=== PATIENT | male | born 1995 | race Caucasian/White ===

== ENCOUNTER 2021-09-03 13:15 | Emergency (ER) | payer SELFPAY ==
[2021-09-03 13:21] VITALS: BP 128/78; PULSE 83; RESP 16; TEMP 36.9; O2SAT 98; BMI 34.2
[2021-09-03 15:03] LABS: Basophils % 0.2 %; Eosinophils % 0.1 %; Hematocrit 43.7 % (42.0-52.0); Hemoglobin 15.2 g/dL (11.7-16.6); Lymphocytes # 1.2 10^3/uL (0.8-4.8); Lymphocytes % 6.8 %; Mean Corpuscular HGB Conc 34.8 g/dL (30.0-36.0); Mean Corpuscular Hemoglobin 30.2 pg (28.0-34.0); Mean Corpuscular Volume 86.9 fl (80-94); Mean Platelet Volume 9.2 fL (7.4-10.4); Monocytes # 0.9 10^3/uL (0.2-0.9); Monocytes % 5.4 %; Neutrophils # 14.81 10^3/uL (1.8-7.7); Neutrophils % 87.3 %; Nucleated Red Blood Cells % 0 %; Platelet Count 338 10^3/cmm (130-400); Red Blood Count 5.03 10^6/uL (4.1-5.3); Red Cell Distribution Width 11.4 % (12.1-15.1)
--- NOTE | 2021-09-03 15:05 | CT_ITS ---
WS: [id number] CT ABDOMEN AND PELVIS WITH CONTRAST HISTORY: Abdominal pain and blood in stool. TECHNIQUE: Imaging performed of the abdomen and pelvis with IV contrast. Single phase imaging of the abdomen. Coronal and sagittal reformats are submitted. All CT scans at [facility] use at [address] one of these dose optimization techniques: automated exposure control; mA and/or kV adjustment per patient size (includes targeted exams where dose is matched to clinical indication); or iterative re construction. IV CONTRAST: Omnipaque 300; 95 mL IV. Oral contrast: No DLP: 1928.3 mGy.cm COMPARISON: None available. Lower thorax: Lung bases are clear. Heart is normal size. No hiatal hernia. Liver/biliary system: Normal size with no intrahepatic dilatation. Gallbladder: Normal. No gallstones or wall thickening. No pericholecystic fluid. Pancreas: Normal size pancreas and pancreatic duct. No adjacent inflammation. Spleen: Normal size spleen. No mass or infarct. Adrenal glands: Normal. Right kidney: Normal. Left kidney: Normal. Aorta: Normal. Lymphadenopathy: Numerous hyperemic lymph nodes are noted within the mesentery. The largest lymph nod es measure up to 9 mm in the RIGHT lower quadrant. Small precaval lymph node. Free fluid: None. GI tract: The appendix is normal. Normal appearance of the stomach. No small bowel obstruction. No ev idence for enteritis. Within portions of the colon there is diffuse wall thickening and nodularity wi th ill-defined mucosa. The findings are most significant in the descending and sigmoid colon to the r ectum. There is not a lot of edema or pericolonic inflammation. There is high density material within the distal colon which may be medicinal. Abdominal wall: Unremarkable abdominal wall. No hernia. Pelvis: No free fluid or adenopathy. Nondistended urinary bladder. Bones: Unremarkable. CT/CT abdomen pelvis w con* [id number] IMPRESSION: 1. Moderate mucosal thickening and nodularity, predominantly within the descen ding and sigmoid colon to the rectum. Findings are most consistent with colitis /ulcerative colitis. 2. The appendix is normal. 3. No free air. 4. Reactive mesenteric and RIGHT lower quadrant lymph nodes.
--- NOTE | 2021-09-03 15:05 | W.ED.GIBLEED ---
HPI - GI Bleed General: Chief complaint: GI Bleed Stated complaint: Passing alot of blood w/ Diarrhea Time Seen by Provider: 09/03/21 14:46 History of Present Illness: HPI Narrative: 25 yo male present to the eR with omplaints of bright red blood per rectum. Patient has had 2 blood-streaked stools in the last 24 hours. No history of ulcerative colitis or Crohn's. Some mild epigastric discomfort has not had any vomiting but has been nauseous. MD complaint: blood streaked stool Onset (ago): day(s) Pain Consistency: constant Severity: mild Relieving factors: none Exacerbating factors: none Associated symptoms: Reports abdominal pain, nausea and poor appetite; Denies chills, easy bruising, epistaxis, fever(s), headache(s), malaise, other bleeding, rash, syncope, vomiting or weakness Review of Systems Const: Denies: fever(s), chills or malaise ENMT: Denies: epistaxis Card: Denies: syncope Resp: Denies: dyspnea, productive cough or non-productive cough GI: Reports: abdominal pain and nausea; Denies: vomiting : Denies: flank pain, dysuria, urinary frequency or urinary urgency Skin/Breast: Denies: rash Neuro: Denies: headache(s) Randell/Lymph: Denies: easy bruising PFS ED PFSH: Medical History (Updated 09/03/21 @ 16:11 by Louie Anand DO) No pertinent past medical history Surgical History (Updated 09/03/21 @ 15:09 by Louie Anand DO) No pertinent past surgical history Physical Exam Const: COMMON NORMALS: no acute distress GENERAL APPEARANCE: cooperative and comfortable ORIENTATION/CONSCIOUSNESS: Yes awake, Yes oriented to person, Yes oriented to place and Yes oriented to time HENMT: COMMON NORMALS: normocephalic, atraumatic and hearing grossly normal bilaterally HEAD & SCALP: normocephalic and atraumatic Neck/C-Spine: COMMON NORMALS: no JVD Resp: COMMON NORMALS: normal respiratory effort, No retractions, No use of accessory muscles and clear to auscultation bilaterally AUSCULTATION: clear to auscultation bilaterally Cardio: COMMON NORMALS: no JVD, regular rate, regular rhythm and No murmurs present (Cardio) RATE: regular rate RHYTHM: regular rhythm GI: COMMON NORMALS: Soft to palpation and No hepatosplenomegaly present AUSCULTATION: Yes normoactive bowel sounds PALPATION: Yes Soft to palpation, No Tenderness to palpation present (GI), No Guarding due to palpation present (GI) and Yes No hepatosplenomegaly present RECTAL EXAM: Yes hemorrhoids (Some fresh bright red blood around the rectum.) Extremity: COMMON NORMALS: normal to inspection, capillary refill normal, no clubbing, cyanosis or edema, no calf tenderness and no pedal edema Neuro: SENSORIUM/ORIENTATION: Yes oriented to person, Yes oriented to place and Yes oriented to time Skin: COMMON NORMALS: no rashes or lesions noted GENERAL SKIN EXAM: no rashes or lesions noted Course Vital Signs: Vital signs: Vital Signs Temperature 98.4 F 09/03/21 13:21 Pulse Rate 84 09/03/21 16:31 Respiratory Rate 18 09/03/21 16:31 Blood Pressure 137/74 09/03/21 16:31 Pulse Oximetry 97 09/03/21 16:31 MDM - GI Bleed MDM Narrative: Medical decision making narrative: Labs and imaging reviewed as found on the chart. Patient appears to have a hemorrhoid in addition that he does have some colitis. We will treat the colitis with Cipro and Flagyl Zofran clear liquid diet and advance as tolerated. For the hemorrhoid use [id number] Preparation H every 4 hours. Follow-up with his primary care doctor you will need a colonoscopy sometime in the next month or 2 if he has any worsening or change symptoms or increasing rectal bleeding return to the emergency room. Lab Data: Labs: Lab Results 09/03/21 09/03/21 14:54 14:54 WBC 17.0 10^3/uL H 10 ^3/uL (4.0-10.0) RBC 5.03 10^6/uL 10^6 /uL (4.1-5.3) Hgb 15.2 g/dL g/dL (11.7-16.6) Hct 43.7 % % (42.0-52.0) MCV 86.9 fl fl (80-94) MCH 30.2 pg pg (28.0-34.0) MCHC 34.8 g/dL g/dL (30.0-36.0) RDW 11.4 % L % (12.1-15.1) Plt Count 338 10^3/cmm 10^3 /cmm (130-400) MPV 9.2 fL fL (7.4-10.4) Neut % (Auto) 87.3 % % Lymph % (Auto) 6.8 % % Maries % (Auto) 5.4 % % Eos % (Auto) 0.1 % % Baso % (Auto) 0.2 % % Neut # (Auto) 14.81 10^3/uL H 1 0^3/uL (1.8-7.7) Lymph # (Auto) 1.2 10^3/uL 10^3/ uL (0.8-4.8) Maries # (Auto) 0.9 10^3/uL 10^3/ uL (0.2-0.9) Eos # (Auto) 0.0 10^3/uL 10^3/ uL (0.0-0.8) Baso # (Auto) 0.0 10^3/uL 10^3/ uL (0.0-0.1) Nucleated RBC % (a uto) 0 % % Nucleated RBCs # 0.0 /100WBC /100W BC Sodium 138 mmol/L mmol/L (136-145) Potassium 3.7 mmol/L mmol/L (3.5-5.1) Chloride 101 mmol/L mmol/L (98-107) Carbon Dioxide 24 mmol/L mmol/L (22-29) Anion Gap 16.7 (5-19) BUN 12 mg/dL mg/dL (6-20) Creatinine 0.8 mg/dL mg/dL (0.7-1.2) GFR Calculation 119.8 mL/min mL/m in (90-130) Glucose 85 mg/dL mg/dL (65-115) Calculated Osmolal ity 285 mOsm/kg mOsm/ kg (285-295) Calcium 8.7 mg/dL mg/dL (8.5-10.5) Total Bilirubin 0.5 mg/dL mg/dL (0.15-1.2) AST 22 U/L U/L (0-40) ALT 22 U/L U/L (0-41) Alkaline Phosphata se 80 IU/L IU/L (40-130) Total Protein 7.0 g/dL g/dL (6.6-8.7) Albumin 4.8 g/dL g/dL (3.5-5.2) Globulin 2.2 g/dL g/dL (1.3-4.6) Discharge Plan Discharge Patient Disposition: Home Clinical Impression: Colitis, Bleeding hemorrhoids Condition: Stable Prescriptions: New Cipro 500 mg tablet 500 mg PO BID Qty: 14 RF: 0 Flagyl 500 mg tablet 500 mg PO BID 7 Days Qty: 14 RF: 0 Zofran 4 mg tablet 4 mg PO Q6H PRN (Reason: nausea and vomiting) Qty: 20 RF: 0 Discharge Orders: Discharge ED (Routine); Ordered 09/03/21 Ordered By: Louie Anand Discharge Diet: Clear Liquid Patient Instructions: Opioid Safety Activity Restrictions/Additional Instructions: Follow-up with your primary care doctor within the next 1 to 2 weeks. Return to the emergency room if you have any further problems. You should follow-up with your primary care doctor to have a colonoscopy done sometime in the next month or 2. Clear liquid diet for the next 48 hours and advance as tolerated. Coding Level of Care Code ED Licensed Massage Therapist for Chg Fwd Exam Comprehensive
[2021-09-03 15:26] LABS: Alanine Aminotransferase 22 U/L (0-41); Albumin Level 4.8 g/dL (3.5-5.2); Alkaline Phosphatase 80 IU/L (40-130); Anion Gap 16.7 (5-19); Aspartate Amino Transferase 22 U/L (0-40); Blood Urea Nitrogen 12 mg/dL (6-20); Calcium 8.7 mg/dL (8.5-10.5); Carbon Dioxide 24 mmol/L (22-29); Chloride 101 mmol/L (98-107); Globulin 2.2 g/dL (1.3-4.6); Glomerular Filtration Rate 119.8 mL/min (90-130); Glucose 85 mg/dL (65-115); Osmolality Calculated 285 mOsm/kg (285-295); Potassium 3.7 mmol/L (3.5-5.1); Sodium 138 mmol/L (136-145); Total Bilirubin 0.5 mg/dL (0.15-1.2)
[2021-09-03] MEDS: sodium chloride 0.9% 1,000 ML 999 ML IV (15:27)
[2021-09-03 16:06] VITALS: PULSE 84; RESP 18; O2SAT 98
[2021-09-03 16:31] VITALS: BP 137/74; PULSE 84; RESP 18; O2SAT 97
[2021-09-03] MEDS: iohexol 300 mg/mL 100 mL Btl IV (17:26)
== END 2021-09-03 16:37 | disposition home or self-care (01) ==
PROVIDERS: Emergency Provider Family Medicine
DX: K52.9 Noninfective gastroenteritis and colitis, unspecified (principal); K64.9 Unspecified hemorrhoids
CPT/HCPCS: 74177; 80053; 85025; 96360; 99283; J7030; Q9967

== ENCOUNTER → 2023-05-15 17:43 | Outpatient (BNVA) | payer BC, MEDICAID, SELFPAY | PROVIDERS: Visit Provider Family Medicine | DX: J02.9 Acute pharyngitis, unspecified (principal) | CPT/HCPCS: 87880 ==